=== PATIENT | female | born 1980 | race Two or more races ===

== ENCOUNTER 2024-06-12 08:46 | Outpatient (CLI) | payer OTHER | END 2024-06-12 08:47 | disposition home or self-care (01) | LOC: SONOGRAMA 08:46 | DX: R10.84 Generalized abdominal pain (principal) ==

== ENCOUNTER 2024-07-03 06:55 | Outpatient (CLI) | payer OTHER ==
[2024-07-03 07:22] LABS: HEMATOCRIT 40.2 % (36.0-45.00); HEMOGLOBIN 13.6 g/dL (12.0-15.00); MEAN CELL VOLUME 95.5 fL (80.00-100.00); MEAN CORPUSCULAR HEMOGLOBIN 32.4 pg (27.00-32.0); MEAN CORPUSCULAR HGB CONC 33.9 g/dl (32.0-36.0); PLATELET COUNT 277 K/uL (150-450); RED BLOOD COUNT 4.21 M/uL (4.00-6.00); RED CELL DISTRIBUTION WIDTH 14.1 % (11.5-14.5)
[2024-07-03 08:02] LABS: PARTIAL THROMBOPLASTIN TIME 26.7 SECONDS (22.0-34.0); PROTHROMBIN TIME 10.9 SECONDS (9.0-11.5)
[2024-07-03 08:19] LABS: URINE APPEARANCE Clear; URINE BILIRRUBIN Negative (NEGATIVE); URINE BLOOD Trace; URINE COLOR Yellow; URINE GLUCOSE Negative (NEGATIVE); URINE KETONE Negative (NEGATIVE); URINE LEUKOCYTE Negative; URINE NITRATE Negative; URINE PROTEIN Negative (NEGATIVE); URINE UROBILINOGEN 0.2 E.U./dl
[2024-07-03 08:21] LABS: URINE BACTERIA 222.9 uL (0.0-1933); URINE EPITHELIAL CELLS 9.7 uL (0.0-38.8); URINE RBC 7.4 uL (0.0-20.8); URINE WBC 1.8 uL (0.0-23.2)
[2024-07-03 08:24] LABS: ALBUMIN 3.7 gm/dL (3.4-5.0); ALKALINE PHOSPHATASE 56 U/L (50-136); ALT/SGPT 30 U/L (12-78); AMYLASE 75 U/L (25-115); ANION GAP 9 (10.0-20.0); AST/SGOT 28 U/L (15-37); BILIRUBIN TOTAL 0.32 mg/dL (0.3-1.2); BILIRUBIN,CONJUGATED < 0.10 mg/dL (0.0-0.2); BILIRUBIN,UNCONJUGATED 0.22 mg/dL (0.0-0.6); BLOOD UREA NITROGEN 18 mg/dL (7-18); BUN CREA RATIO 27 (7.0-25.0); CARBON DIOXIDE 27 mEq/L (21-32); CHLORIDE 109 mmol/L (98-107); CREATININE SERUM 0.66 mg/dL (0.55-1.02); GFR 96.85; GLOBULINA 3.3 G/DL (2.4-3.5); GLUCOSE FASTING 80 mg/dL (65-100); LIPASE 58 U/L (13-75); OSMOLALITY SERUM 282 MOSM/KG (275-295); POTASSIUM 4.23 mEq/L (3.5-5.1); SODIUM 141 mmol/L (136-145)
== END 2024-07-03 06:56 | disposition home or self-care (01) ==
LOC: LAB 06:55
PROVIDERS: ATTEND Surgery
DX: K80.10 Calculus of gallbladder with chronic cholecystitis without obstruction (principal); K42.9 Umbilical hernia without obstruction or gangrene; Z03.818 Encounter for observation for suspected exposure to other biological agents ruled out

== ENCOUNTER 2024-09-03 08:09 | Outpatient (CLI) | payer OTHER | END 2024-09-03 08:10 | disposition home or self-care (01) | LOC: LAB 08:09 | PROVIDERS: ATTEND Obstetrics & Gynecology Gynecology | DX: N95.1 Menopausal and female climacteric states (principal); E28.2 Polycystic ovarian syndrome; E03.8 Other specified hypothyroidism; Z13.29 Encounter for screening for other suspected endocrine disorder ==

== ENCOUNTER → 2024-11-04 08:31 | Outpatient (CLI) | payer OTHER ==
[2024-11-05 10:07] LABS: ESTRADIOL SERUM 46.3 pg/mL (.)
== END | disposition home or self-care (01) ==
LOC: LAB 08:31
PROVIDERS: ATTEND Obstetrics & Gynecology Gynecology
DX: N95.1 Menopausal and female climacteric states (principal); E28.2 Polycystic ovarian syndrome

== ENCOUNTER 2025-02-12 12:11 | Emergency (ER) | payer OTHER ==
[~2025-02-12] VITALS: Ht 154.9 cm; Wt 62.6 kg
[2025-02-12] MEDS ORDERED: LEVALBUTEROL HCL 1.25 MG/3 ML SOLUTION IH STA (13:52)
[2025-02-12] MEDS ORDERED: BUDESONIDE 0.5 MG/2 ML AMPUL.NEB IH STA (13:52)
[2025-02-12 14:17] LABS: BASO % 0.5 % (0.1-1.2); EOS # 0.24 (0.04-0.54); EOS % 2.4 % (0.7-7.0); HEMATOCRIT 41.9 % (34.1-44.9); HEMOGLOBIN 14.2 g/dL (11.2-15.7); LYMPH # 2.87 (1.18-3.74); MONO # 0.74 (0.24-0.82); MONO % 7.5 % (4.7-12.5); NEUT # 5.95 (1.56-6.13); NEUT % 60.2 % (34.0-71.1); PLATELET COUNT 291 K/uL (163-369); RED BLOOD COUNT 4.44 M/uL (3.93-5.22); RED CELL DISTRIBUTION WIDTH 12.4 % (11.6-14.4)
[2025-02-12 14:37] LABS: COVID-19 AG NEGATIVE (NEGATIVE)
[2025-02-12 14:38] LABS: INFLUENZA A AG NEGATIVE (NEGATIVE)
== END 2025-02-12 16:09 | disposition home or self-care (01) ==
LOC: ER 12:51
PROVIDERS: General Practice
DX: R05.9 Cough, unspecified (principal); R53.83 Other fatigue; Z20.822 Contact with and (suspected) exposure to COVID-19

== ENCOUNTER 2025-06-28 13:54 | Outpatient (CLI) | payer OTHER | END 2025-06-28 13:58 | disposition home or self-care (01) | LOC: MAMO-SONO 13:54 | PROVIDERS: ATTEND Obstetrics & Gynecology Gynecology | DX: D48.61 Neoplasm of uncertain behavior of right breast (principal); Z12.31 Encounter for screening mammogram for malignant neoplasm of breast ==